=== PATIENT | female | born 2000 | race Caucasian/White ===

== ENCOUNTER 2023-03-10 01:47 | Emergency (ER) | payer OTHER ==
[2023-03-10 01:53] VITALS: BP 112/77; PULSE 65; RESP 16; TEMP 98.9; BMI 26.2
== END 2023-03-10 05:04 | disposition home or self-care (01) ==
LOC: JER 01:47
DX: M79.601 Pain in right arm (principal); H92.02 Otalgia, left ear; V49.40XA Driver injured in collision with unspecified motor vehicles in traffic accident, initial encounter; Y93.I9 Activity, other involving external motion
CPT/HCPCS: 99281-25